=== PATIENT | male | born 1970 | race Caucasian/White ===

== ENCOUNTER 2016-08-17 13:42 | Emergency (ER) | payer MEDICARE, OTHER | END 2016-08-17 14:05 | disposition home or self-care (01) | LOC: ER 13:42 | DX: T81.4XXA Infection following a procedure, initial encounter (principal); L08.9 Local infection of the skin and subcutaneous tissue, unspecified; I10 Essential (primary) hypertension; F17.210 Nicotine dependence, cigarettes, uncomplicated; Z98.890 Other specified postprocedural states; Z79.899 Other long term (current) drug therapy ==

== ENCOUNTER 2016-12-29 10:28 | Emergency (ER) | payer MEDICARE | END 2016-12-29 13:00 | disposition home or self-care (01) | LOC: ER 10:28 | DX: L02.414 Cutaneous abscess of left upper limb (principal); I10 Essential (primary) hypertension; F17.210 Nicotine dependence, cigarettes, uncomplicated; Z79.899 Other long term (current) drug therapy | CPT/HCPCS: 96365; 96366; J3370 ==